=== PATIENT | female | born 1945 | race Hispanic/Latino ===

== ENCOUNTER 2024-08-02 10:12 | Observation (INO) | payer OTHER, MEDICARE ==
[2024-07-31 11:19] LABS: BASOPHILS # (AUTO) 0.14 K/uL (0.00-0.20); BASOPHILS % (AUTO) 1.5 % (0.0-5.0); EOSINOPHILS # (AUTO) 0.22 K/uL (0.00-0.70); EOSINOPHILS % (AUTO) 2.3 % (0.0-8.0); HEMATOCRIT 39.8 % (36-48); IMMATURE GRANULOCYTE ABSOLUTE 0.03 K/uL (0-1); LYMPHOCYTES # (AUTO) 1.7 K/uL (1.0-4.8); LYMPHOCYTES % (AUTO) 18.2 % (21.0-51.0); MEAN CORPUSCULAR HGB CONC 30.9 g/dL (32.0-36.0); MEAN CORPUSCULAR VOLUME 97.1 fL (79-99); MONOCYTES # (AUTO) 0.6 K/uL (0.1-1.0); MONOCYTES % (AUTO) 6.4 % (3.0-13.0); NEUTROPHILS # (AUTO) 6.8 K/uL (1.8-7.7); NEUTROPHILS % (AUTO) 71.3 % (40.0-77.0); PLATELET COUNT (AUTO) 254 K/uL (130-400); RED CELL DISTRIBUTION WIDTH 12.2 % (11.0-15.5); WHITE BLOOD COUNT (AUTO) 9.5 K/uL (4.8-10.8)
[2024-07-31 11:41] LABS: INR <= 0.93 (0.85-1.15); PROTHROMBIN TIME 10.1 SEC (9.6-11.6)
[2024-07-31 11:43] LABS: PARTIAL THROMBOPLASTIN TIME 23.9 SEC (26.3-35.5)
--- NOTE | 2024-07-31 11:43 | EKG ---
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
[2024-07-31 11:46] VITALS: BP 177/74; PULSE 72; RESP 18; TEMP 97.4
[2024-07-31 11:46] LABS: B-TYPE NATRIURETIC PEPTIDE 356 pg/mL (0-100)
[2024-07-31 12:07] LABS: APPEARANCE,URINE CLOUDY (CLEAR); BILIRUBIN,URINE NEGATIVE (NEGATIVE); COLOR,URINE LIGHT-YELLOW (YELLOW); GLUCOSE, URINE (UA) >=1000 mg/dL (NEGATIVE); KETONES,URINE NEGATIVE (NEGATIVE); LEUKOCYTE ESTERASE ,URINE 500 Leu/uL (NEGATIVE); NITRATE,URINE 1+ (NEGATIVE); OCCULT BLOOD,URINE NEGATIVE (NEGATIVE); PH,URINE 6.5 (5.0-8.0); PROTEIN,URINE 10 mg/dL (NEGATIVE); UROBILINOGEN,URINE 0.2 mg/dL (0.2-1.0)
[2024-07-31 12:08] LABS: ADD UA MICROSCOPIC YES
[2024-07-31 12:37] LABS: CREATININE 1.7 mg/dL (0.5-1.0); POTASSIUM 4.7 mmol/L (3.5-5.1)
--- NOTE | 2024-07-31 12:49 | HMCIMG ---
CHEST 1VW REASON: PREOP COMPARISON: None. FINDINGS: Single view of the chest was obtained. Lungs are clear. Heart size is normal. There is no pulmonary vascular congestion. Mediastinum and bony thorax appear unremarkable. There is a bipolar pacemaker in place, lead tips appear in good position. IMPRESSION: 1. No acute process seen in the chest.
[2024-07-31 12:55] LABS: BACTERIA,URINE FEW /HPF (None Seen); MUCUS,URINE RARE LPF (None Seen); SQUAMOUS EPITHELIAL CELL,UR RARE /HPF (0-2); UNCLASSIFIED CRYSTAL 1 /HPF (None Seen); WBC CLUMP FEW /HPF (0-1); WBC,URINE TNTC /HPF (0-1); YEAST,URINE BUDDING FEW /HPF (None Seen)
--- NOTE | 2024-08-01 10:04 | NUR ---
REPORT REPORTED UA/BUN/CREAT TO DR LEIGH MONREAL. OK TO PROCEED. WILL TREAT AM OF PROCEDURE
[2024-08-02] VITALS (34 sets, daily range): BP systolic 65–143; BP diastolic 42–74; PULSE 70–82; RESP 12–18; TEMP 97.2–98.8
[~2024-08-02] VITALS: Ht 154.9 cm; Wt 80.3 kg
[~2024-08-02 10:12] MED LIST: ASPI-1005 PO; CLOP-31 PO; EMPA10TA PO; EZET10TA48 PO; FURO20TA4 PO; GABA-534 PO; INSU3INS3 SQ; MAGN250T10 PO; METO-408 PO; MIDO10TA3 PO; NITR0.4T50 SL; PANT40TA54 PO; SEMA1PEN3 SQ
[2024-08-02] MEDS: 0.9%NACL 1000ML 1,000 ML IV SCH ×2 (11:05→19:48)
[2024-08-02] MEDS ORDERED: IOHEXOL 350 MG/ML 100ML INFUS..BTL IV ONE ×3 (13:05→20:42)
[2024-08-02] MEDS ORDERED: LIDOCAINE HCL 400MG/20ML VIAL ONE (13:05)
[2024-08-02] MEDS ORDERED: HEParin-NS 1,000 UNIT/500 ML 1,000 ML IV ONE (13:06)
[2024-08-02] MEDS ORDERED: VERAPAMIL HCL 2.5 MG/ML VIAL ONE (13:06)
[2024-08-02] MEDS ORDERED: NITROGLYCERIN 50MG VIAL ONE (13:06)
[2024-08-02] MEDS ORDERED: HEParin 10,000 UNIT/10ML (1,000 UNIT/ML) VIAL ONE (13:06)
[2024-08-02] MEDS ORDERED: MIDAZOLAM HCL 1 MG/ML 2ML VIAL ONE ×3 (13:18→14:48)
[2024-08-02] MEDS ORDERED: FENTanyl CITRate PF 50 MCG/1 ML 2ML VIAL ONE ×2 (13:18→14:48)
[2024-08-02] MEDS ORDERED: ceFAZolin SODIUM 1 GM VIAL ONE (13:25)
[2024-08-02] MEDS ORDERED: ATROPINE 1MG SYG IVP ONE (14:25)
[2024-08-02] MEDS ORDERED: HEParin-NS 1,000 UNIT/500 ML 500 ML IV ONE (14:40)
[2024-08-02] MEDS ORDERED: GLUCAGON 1MG KIT 1 MG ML IM PRN (15:30)
[2024-08-02] MEDS ORDERED: DEXTROSE 50%-WATER 50 ML DISP.SYRIN IV PRN (15:30)
--- NOTE | 2024-08-02 15:46 | PRN ---
PROCEDURE REPORT DATE OF PROCEDURE: Aug 02, 2024 COMPOSITION SIDING WORKER: [James Cummings MD ] PROCEDURE PERFORMED: Conscious sedation Ultrasound guided right radial artery access (aborted due severe radial spasm) Ultrasound guided right common femoral arterial access Selective left coronary artery angiogram Selective right coronary artery angiogram Left heart catheterization S/p successful PTCA/PCI of distal RCA (2.46y20pu DAVID) S/p successful PTCA/PCI of prox OM1 (2.5x15 mm DAVID) S/p PTCA of mid Lcx TR band 13 min over right radial artery Mynx closure of the right common femoral artery INDICATION: New HFrEF DESCRIPTION OF PROCEDURE: After informed consent was obtained, the patient was prepped and draped in the usual sterile fashion. A 6 [place] arterial sheath was inserted in the right radial artery using ultrasound guidance with first pass wall puncture. We were met significant resistance advancing the right radial sheath despite no resistance to micro wire advancement. Given the significant spasm and pain the radial approach was aborted and we placed a TR band with 13 MIN for patent hemostasis. We transition to femoral approach and obtained access via the right common femoral artery under ultrasound guidance with 1st wall pass puncture. We then performed a limited right iliofemoral angiography to delineate anatomy. We advanced a six [place] arterial sheath in the right common femoral artery. The arterial sheath was aspirated and flushed. A 6 [place] JL 4 was then advanced to the ascending aorta over an exchange length J-tip guidewire, was aspirated and flushed, and was used for selective coronary angiograms in multiple obliquities. A JR-4 was advanced in a similar fashion to the ascending aorta over the J- tipped guidewire and was used for selective right coronary angiograms in multiple oblique views with findings as outlined below. The JR-4 catheter advanced into the LV and pressures were obtained with a pull-back across the aortic valve. Following review of all the angiographic images decision was made to intervene on patient's OM two and distal RCA disease. We exchanged the diagnostic catheter for six [place] JR4 guide catheter which was advanced over the wire and similar fashion used to select engaged right coronary artery. We provided a total of 9000 units of IV heparin and following therapeutic ACT we advanced a [place] into the distal RCA under fluoroscopic guidance. We pre- dilated the distal RCA using a 2.5 x 15 mm compliant balloon to 12 MIN. We then deployed a 2.75 x 22 mm brent Rudolph drug-eluting stent within the mid to distal RCA to nominal pressures. We then post dilated the stent using a 2.75 x 20 mm noncompliant balloon to 14 and 16 MIN respectively. We note baptism of ZENA three flow and no dissections or perforations. At this time we directed our attention to OM stenosis. We exchanged the JR4 catheter for a six [place] XB three guide catheter which was used to select engage the left main coronary artery. We then advanced a Prowater into the distal OM2 lesion under fluoroscopic guidance and pre-dilated the proximal OM2 lesion using a 2.5 x 15 mm compliant balloon to nominal pressures. We then deployed a 2.5 x 18 mm brent Rudolph drug-eluting stent within the left circumflex extending to the proximal OM2. We post dilated the stent using a 2.5 x 15 mm noncompliant balloon to 12 MIN. We noted plaque shift into the left circumflex leading to an 80-90% ostial stenosis. At this time we obtained an 014 run-through wire which was advanced into the distal left circumflex traversing that stent struts. We then advanced a 2 x 15 mm compliant balloon into the left circumflex traversing the stent struts we also advanced a 2.5 x 15 mm compliant balloon into the OM1 protruding into the left circumflex I performed kissing balloon inflations. We note baptism of ZENA three flow with no dissections or perforations and at this time all wires and catheter was removed from the body. A Mynx closure device was deployed of the right common femoral artery with patent hemostasis. 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 Gives rise to LCx and LAD. LEFT ANTERIOR DESCENDING: Large vessel giving rise to two Diagonal branches. Diffusely calcified with a patent prox to mid LAD stent becoming 50% InStent restenosis of the distal stent edge. The mid to distal LAD is small caliber approximately 2 mm and diffusely diseased LEFT CIRCUMFLEX: Large and gives rise to two OM branches. There is a patent proximal stent with mild (10-20% ISR). OM1 is small. OM2 has 80% proximal stenosis RIGHT CORONARY ARTERY: Large, dominant vessel giving rise to PDA and PL branches. Diffusely calcified with 30 40% proximal and mid stenosis becoming 80% distally. PDA and PLB are patent HEMOSTASIS: TR band 12 min over right radial artery INTERVENTIONS: S/p successful PTCA/PCI of distal RCA (2.22b07ur DAVID) S/p successful PTCA/PCI of prox OM1 (2.5x15 mm DAVID) S/p PTCA of mid Lcx COMPLICATIONS: None FINDINGS: Normal coronary anatomy and severe two-vessel CAD status post successful revascularization of the RCA and proximal OM1 ESTIMATED BLOOD LOSS: 5 cc RECOMMENDATIONS/INSTRUCTIONS: Aggressive risk factor modification along with dropped (aspirin 81 mg q.day/P lavix 75 mg q.day for a total of six months) along high intensity statin therapy and beta-andi. CONTRAST DELIVERED TO PATIENT (mL): 275cc MD JOCELIN Vaca JAMES R MD Aug 02, 2024 15:46
[2024-08-02] MEDS ORDERED: hydrALAZine 20MG/ML VIAL IV PRN (16:00)
--- NOTE | 2024-08-02 17:05 | NUR ---
6.25 MCG OF FENTANYL ADMINISTERED AT THIS TIME PER ORDER
--- NOTE | 2024-08-02 17:25 | NUR ---
6.25MCG OF FENTANYL ADMINISTERED AT THIS TIME PER ORDER
[2024-08-02 17:56] LABS: HEMATOCRIT 32.3 % (36-48); MEAN CORPUSCULAR HEMOGLOBIN 30.3 pg (27.0-33.0); MEAN CORPUSCULAR HGB CONC 31.3 g/dL (32.0-36.0); RED BLOOD CELL COUNT(AUTO) 3.33 MIL/uL (4.00-5.50); RED CELL DISTRIBUTION WIDTH 12.3 % (11.0-15.5); WHITE BLOOD COUNT (AUTO) 12.2 K/uL (4.8-10.8)
--- NOTE | 2024-08-02 18:22 | HMCIMG ---
US SOFT TISSUE ABD/ABD WALL REASON: RIGHT FEM ACCESS/HEMATOMA/PSEUDO COMPARISON: None TECHNIQUE: Ultrasound was performed of the right groin to evaluate catheterization site. FINDINGS: There is a small amount of edema. There is no discrete focal hematoma. There is no evidence of pseudoaneurysm. IMPRESSION: 1. No evidence of hematoma or pseudoaneurysm.
--- NOTE | 2024-08-02 18:40 | NUR ---
SBAR REPORT GIVEN TO TOMI TRENT.UPDATED ON PT STATUS. PATIENT TRANSFERRED TO ROOM 232 AT THIS TIME
[2024-08-02] MEDS: PROMETHAZINE HCL 25 MG/ML 1ML AMPULE IM ONE (19:48)
[2024-08-02] MEDS: FENTanyl CITRate PF 50 MCG/1 ML 2ML VIAL ONE (19:48)
[2024-08-02] MEDS: DOPamine HCL 400 MG/D5%-WATER 250 ML IV ONE (19:48)
[2024-08-02] MEDS: FENTanyl CITRate PF 50 MCG/1 ML 2ML VIAL IVP SCH (19:48)
[2024-08-02] MEDS: 0.9% NACL 500ML IV.SOLN 500 ML IV SCH (19:48)
[2024-08-02] MEDS: ondanSETRON 4MG INJ ONE ×2 (19:48→19:51)
[2024-08-02] MEDS: ATROPINE 1MG SYG IVP ONE (19:48)
[2024-08-02 20:02] LABS: HEMATOCRIT 29.3 % (36-48)
--- NOTE | 2024-08-02 21:00 | NUR ---
LATE ENTRY 1645- IN TO ASSESS RIGHT GROIN AND RIGHT RADIAL ACCESS SITE (S/P LHC). RIGHT GROIN NOTED TO BE HARD, TENDER, MANUAL PRESSURE APPLIED TO RIGHT GROIN/LOWER ABDOMEN BY Rodrigo HARDIN RN. DR. MONREAL MADE AWARE. 165- DR. MONREAL AT BEDSIDE TO ASSESS PATIENT AND MD APPLIED PRESSURE AT THIS TIME. Snappli TECH IN ROOM FOR US ABDOMEN. 1700- PATIENT BP DROPPED INTO 70'S SYSTOLIC, PT RESPONSIVE TO VERBAL STIMULI, RADIAL PULSE WEAK, IV NS BOLUS GIVEN, PATIENT STARTED ON DOPAMINE AT 5 MCG/KG/MIN PER DR. MONREAL. PRESSURE CONTINUES TO BE APPLIUED TO GROIN 1715- MANUAL PRESSURE HELD FOR 30 MINUTES, AREA OF HEMATOMA NOTED TO BE MUCH SMALLER IN SIZE, AREA SOFT TO TOUCH 1720- DOPAMINE D/C'D AT THIS TIME, PT SBP IN THE 120'S
--- NOTE | 2024-08-02 21:19 | HMCIMG ---
CT ANGIO ABDOMEN PELVIS REASON: RULE OUT RETROPERITONEAL BLEED COMPARISON: 05/15/2023 TECHNIQUE: Images are obtained from lung bases through the perineum before, during and after bolus IV contrast infusion, 100 cc Omnipaque 350. FINDINGS: Lung bases are clear. There are no focal liver lesions. There are normal-appearing kidneys.. Spleen and pancreas appear unremarkable. There has been a previous cholecystectomy. There is moderate sigmoid diverticulosis without evidence of diverticulitis. Bowel loops appear otherwise unremarkable. This includes normal appearance of the appendix There is no evidence of free fluid or intraperitoneal air. There are no focal fluid collections. Aorta and retroperitoneum appear normal as do pelvic soft tissue structures. The anterior abdominal wall is intact. Osseous structures appear unremarkable. There is extensive fluid in the soft tissues in the left groin. This appears to extend superiorly and laterally from the groin puncture site, in the subcutaneous soft tissues of the lateral abdominal wall. Finding is consistent with hemorrhage. There is no discrete focal hematoma. There is no evidence of pseudoaneurysm. IMPRESSION: 1. Extensive hemorrhage infiltrating the subcutaneous soft tissues of the anterior upper thigh, extending superiorly and laterally in the simultaneous soft tissues of the lateral abdominal wall 2. The area of hemorrhage is large, extending at least 6 x 17 cm axial dimension and 17 cm superior to inferior. 3. The hemorrhage appears to be diffuse infiltration of the soft tissues rather than a discrete focal hematoma. 4. There is no CT evidence of continued to arterial bleed from the groin at this time. 5. There is no evidence of retroperitoneal or intra-abdominal extension. CT was performed with one or more following dose reduction techniques: automated exposure control, adjustment of the mA and kv according to patient's size, or use of a iterative reconstruction technique.
[2024-08-02] MEDS: acetaMINOPHEN 325 MG TAB ONE (21:21)
--- NOTE | 2024-08-02 21:41 | NUR ---
DR cummings ordered a CTA abdomen pelvis earlier due to patients drop in hemoglobin. Patient was already taken and returned from CT. Dr Cummings ordered acetominophen for mild pain 1-3 650 mg q6hr, and ok to resume gabapentin 800 mg home med. Contacted pharmacy 800 mg tablet is not available. Pharmacy to create label for home med.
[2024-08-02] MEDS ORDERED: acetaMINOPHEN 325 MG TAB PO PRN (22:00)
[2024-08-02] MEDS: GABAPENTIN 800MG PO SCH (22:26)
[2024-08-02 22:37] LABS: HEMATOCRIT 28.3 % (36-48)
[2024-08-03] VITALS (8 sets, daily range): BP systolic 88–134; BP diastolic 48–95; PULSE 76–87; RESP 15–18; TEMP 97.6–98.6; O2SAT 95–100
[2024-08-03 00:35] LABS: HEMATOCRIT 27.3 % (36-48)
[2024-08-03 04:11] LABS: HEMATOCRIT 26.6 % (36-48)
[2024-08-03] MEDS: cloPIDOgrel 75MG TAB PO SCH (09:40)
[2024-08-03] MEDS: ASPIRIN 81MG CHEW TAB PO SCH (09:41)
--- NOTE | 2024-08-03 10:42 | PN ---
[facility] CARDIOLOGY PROGRESS NOTE Date Patient Seen: Aug 03, 2024 Time of Visit: 10:34 Problem List: [ Multivessel CAD Status post successful PTCA/PCI of the distal RCA and proximal OM1 (08/02/2024) Right groin hematoma Hypertension Morbid obesity Chronic heart failure reduced ejection fraction/ICM Type 2 diabetes] Interval History: [ Patient presented [facility] as an outpatient for an elective revascularization of her RCA and OM1. Postprocedural patient was noted to have a large right inguinal hematoma with an acute drop in her hemoglobin from 10-->8. 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 Manual pressure was held for approximately 45 minutes postprocedure with stabilization of her hematoma. This a.m. is soft, nontender with no evidence of bleeding and repeat hemoglobin has increased to 8.9. She has remained hemodynamically stable with average systolic blood pressures in the 110s to 120s and heart rates in the 70s to 80s. We will continue trending H and H q.4 hours today and if her hemoglobin remained stable we will plan for discharge this evening. ] Physical Examination: GENERAL: [No acute distress.] HEAD: [Normal with no signs of head trauma.] EYES: [PERRLA, EOMI, conjunctiva and sclera normal.] ENT: [Hearing grossly intact, normal oropharynx.] NECK: [Supple without JVD. There is no tenderness, lymphadenopathy, or masses. No thyromegaly. Normal carotid upstrokes without bruits.] LUNGS: [Clear breath sounds bilaterally.. No wheezes, or rhonchi.] HEART: [Normal rate and rhythm. Normal S1 and S2 without mumurs, gallop or rub.] VASC: [Peripheral pulses +2 bilaterally.] ABD: [Bowel sounds normal, soft, nontender, no masses, no organomegaly. No audible bruits.] : [Not examined] LYMPH: [No lymphadenopathy noted.] EXT: [No clubbing, cyanosis or edema.] SKIN: [No rashes or lesions noted.] NEURO: [Awake, alert, and oriented x3. No focal sensory or strength deficits n oted.] Laboratory: [ ] Hematology Labs: Test 12/14/24 08:10 08/02/24 17:51 Range/Units Hemoglobin 8.9 L 12.0-16.0 g/dL Hematocrit 29.0 L 36-48 % White Blood Count 12.2 H 4.8-10.8 K/uL Red Blood Count 3.33 L 4.00-5.50 MIL/uL Mean Corpuscular Volume 97.0 79-99 fL Mean Corpuscular Hemoglobin 30.3 27.0-33.0 pg Mean Corpuscular Hemoglobin Concent 31.3 L 32.0-36.0 g/dL Red Cell Distribution Width 12.3 11.0-15.5 % Platelet Count 271 130-400 K/uL Mean Platelet Volume 11.0 H 7.5-10.5 fL Nucleated Red Blood Cells 0.0 0.0-0.19 % Chemistry Labs: Test 08/03/24 05:18 Range/Units Whole Blood Glucose 110 70-110 MG/DL Diagnostics / Radiology: [Copy/Paste Echos/Imaging Report here] Impression and Plan: [Right inguinal hematoma/anemia-resolved Multivessel CAD status post successful revascularization of the distal RCA and proximal OM1 on 08/02/2024 Hypertension Hyperlipidemia Morbid obesity Newly diagnosed systolic heart failure (LVEF of 35%) Ischemic cardiomyopathy Type 2 diabetes # right inguinal hematoma Patient presented to [facility] as an outpatient and underwent successful revascularization of the distal RCA and OM1 Postprocedure patient was noted to be hypotensive with a large inguinal hematoma. Stat ultrasound with soft tissue blood with no extravasation Overnight hemoglobin downtrended from 10-->8. Abdominal CTA with and without contrast revealed a large soft tissue hemorrhage in the inguinal area was no active extravasation/bleeding or RP bleed Repeat hemoglobin this a.m. increasing to 8.9. Access site is soft, nontender with no evidence of bleeding. Patient has remained hemodynamically stable average systolic blood pressure in the 110s to 120s and heart rates in the 70- 80s We will repeat H and H q.4 hours x2 today and hemoglobin remained stable and she remained hemodynamically stable we will plan for discharge this evening with strict precautions #multivessel CAD Patient presenting to Cardiology Clinic with newly diagnosed systolic heart failure with an LVEF of 35% She underwent elective coronary angiogram revealing significant LAD disease which was not amenable to PCI due to its small caliber (1.5-2 mm) She was also found to have severe distal RCA and proximal OM1 disease was successfully treated by angioplasty She will require six months of DAPT (aspirin 81 mg daily/Plavix 75 mg daily) in addition to high-intensity statin therapy and beta-andi Hemoglobin remains stable we can plan for discharge home this evening Meanwhile please keep patient on telemetry. Monitor/replace electrolytes as n eeded Cardiology will continue to follow along. She can be discharged if hemoglobin and systolic blood pressure remained stable. She will need close outpatient cardiology follow up me within 1-2 weeks post discharge Leigh monreal MD ] LEIGH MONREAL MD Aug 03, 2024 10:42
[2024-08-03 12:26] LABS: HEMATOCRIT 27.9 % (36-48)
[2024-08-03 16:11] LABS: HEMATOCRIT 25.2 % (36-48)
[2024-08-03 17:43] LABS: HEMATOCRIT 28.5 % (36-48)
== END 2024-08-03 18:51 | disposition home or self-care (01) ==
LOC: DAH 10:12 → DAHIP 10:13 → DAH 10:13 → 2AH 18:58
PROVIDERS: ADMIT Student in an Organized Health Care Education/Training Program; ATTEND Student in an Organized Health Care Education/Training Program
DX: I25.10 Atherosclerotic heart disease of native coronary artery without angina pectoris (principal); E11.51 Type 2 diabetes mellitus with diabetic peripheral angiopathy without gangrene; I73.9 Peripheral vascular disease, unspecified; I11.0 Hypertensive heart disease with heart failure; I50.22 Chronic systolic (congestive) heart failure; E66.01 Morbid (severe) obesity due to excess calories; I25.5 Ischemic cardiomyopathy; E78.5 Hyperlipidemia, unspecified; I65.23 Occlusion and stenosis of bilateral carotid arteries; Z68.33 Body mass index [BMI] 33.0-33.9, adult; Z79.899 Other long term (current) drug therapy; Z98.890 Other specified postprocedural states
CPT/HCPCS: 80048; 83880; 85025; 85610; 85730; 87086 ×2; 81001; 36415 ×3; 71045; 93005; 93458; 85347 ×3; 85027; 85014 ×8; 85018 ×8; 87186; 82948 ×5; 74174; 76705; C1769 ×6; C1887 ×2; C1894 ×3; C1725 ×5; C1874 ×2; C1760; A4649; Q9965 ×3; G0378 ×25; J3010 ×3; J0690; J3490 ×3; J7030; J2550; J1644 ×3; J2250 ×3; J2405 ×2; J1265; Q9967 ×3; A4215; A4223 ×3; A4222; A4221; A4663; A4216; A4606; C9600 ×2; 92920; 99156; 99157; J0461